=== PATIENT | male | born 1945 | race Caucasian/White ===

== ENCOUNTER → 2019-12-20 | Outpatient (CLI) | payer BC, OTHER ==
[~2019-12-20] MED LIST: ADULT LOW DOSE81 MG PO; AMLODIPINE BESYL5 MG PO; BYSTOLIC 5 MG5 M1 PO; CHLORTHALIDONE25 MG PO; FISH OIL SOFTG1 EACH PO; KEFLEX500 MG PO; LAMOTRIGINE100 MG PO; NEXIUM40 MG PO; SEROQUEL XR 30300 M1 PO; TEKTURNA300 MG PO; ZOCOR 20 MG TAB20 M1 PO
== END ==
LOC: SJCVC 11:15
PROVIDERS: ATTEND Internal Medicine Cardiovascular Disease
DX: R94.31 Abnormal electrocardiogram [ECG] [EKG] (principal); R00.8 Other abnormalities of heart beat; C67.9 Malignant neoplasm of bladder, unspecified; I48.0 Paroxysmal atrial fibrillation; I10 Essential (primary) hypertension; I35.0 Nonrheumatic aortic (valve) stenosis; E78.00 Pure hypercholesterolemia, unspecified; E78.1 Pure hyperglyceridemia; D64.9 Anemia, unspecified; R00.1 Bradycardia, unspecified